=== PATIENT | male | born 1965 | race Caucasian/White ===

== ENCOUNTER 2020-11-29 16:07 | Emergency (ER) | payer BC ==
[2020-11-29 16:49] LABS: PTT,PARTIAL THROMBOPLSTIN TIME 29.2 SEC (23.2-32.3)
[2020-11-29 16:53] LABS: CHLORIDE,CL 104 mEq/L (98-106); SODIUM,NA 143 mEq/L (136-145)
--- NOTE | 2020-11-29 17:07 | EDM.PDOC ---
ED HPI GENERAL MEDICAL PROBLEM - General Chief Complaint: General Stated Complaint: FAINTED & FELL Time Seen by Provider: 11/29/20 16:40 Source of Information: Reports: Patient, RN History Limitations: Reports: No Limitations - History of Present Illness INITIAL COMMENTS - FREE TEXT/NARRATIVE: Pt states that since he has had COVID he is sleeping most of the day and is tired and not eating or drinking well. He got up to the bathroom and then fainted. was concerned and called the ambulance. He states that he is feeling much better now than at home. He is drinking water at bedside. Onset: Gradual Location: Reports: Generalized - Related Data Allergies Allergy/AdvReac Type Severity Reaction Status Date / Time No Known Allergies Allergy Verified 11/29/20 16:09 Home Meds: Home Meds Aspirin [Halfprin] 81 mg PO DAILY 02/12/13 [History] Calcium Carb/D3/Magnesium/Zinc [Alok Mag Zinc-D Tablet] 1 each PO DAILY 02/12/13 [History] Cholecalciferol (Vitamin D3) [Vitamin D3] 1,000 unit PO DAILY 02/12/13 [History] Lisinopril 20 mg PO DAILY 12/17/15 [History] Albuterol Sulfate [Proair Hfa] 1 puff INH Q4HR PRN 10/08/20 [History] Past Medical History Genitourinary History: Reports: Other (See Below) Other Genitourinary History: kidney stone Musculoskeletal History: Reports: Back Pain, Chronic - Past Surgical History HEENT Surgical History: Reports: CITLALY Social & Family History - Living Situation & Occupation Living situation: Reports: Occupation: Employed ED ROS GENERAL - Review of Systems Review Of Systems: See Below Constitutional: Reports: Fever, Chills, Weakness, Fatigue HEENT: Reports: No Symptoms Respiratory: Reports: Cough. Denies: Shortness of Breath Cardiovascular: Denies: Chest Pain, Edema Endocrine: Reports: Fatigue GI/Abdominal: Reports: Diarrhea : Reports: No Symptoms Musculoskeletal: Reports: No Symptoms Skin: Reports: No Symptoms Neurological: Reports: No Symptoms ED EXAM, GENERAL - Physical Exam Exam: See Below Exam Limited By: No Limitations General Appearance: WD/WN, Mild Distress Ears: Normal External Exam, Normal Canal, Normal TMs Nose: Normal Inspection Throat/Mouth: Normal Inspection, Normal Oropharynx Head: Atraumatic, Normocephalic Neck: Normal Inspection, Supple, Non-Tender, Full Range of Motion Respiratory/Chest: No Respiratory Distress, Decreased Breath Sounds. No: Wheezing Cardiovascular: Regular Rate, Rhythm, No Edema GI/Abdominal: Normal Bowel Sounds, Soft, Non-Tender Extremities: No Pedal Edema, Normal Capillary Refill Neurological: Alert, Oriented Skin Exam: Warm, Dry, Intact Course - Vital Signs Last Recorded V/S: Last Vital Signs Temp 99.1 F 11/29/20 16:15 Pulse 83 11/29/20 16:15 Resp 18 11/29/20 16:15 BP 142/63 H 11/29/20 16:15 Pulse Ox 96 11/29/20 16:15 - Orders/Labs/Meds Labs: Laboratory Tests 11/29/20 11/29/20 11/29/20 Range/Units 16:35 16:35 16:35 WBC 6.1 (4.0-11.0) 10^3/uL RBC 4.88 (4.50-6.00) x10^6/uL Hgb 14.5 (14.0-18.0) g/dL Hct 43.7 (42.0-52.0) % MCV 89.5 (83.0-97.0) fL MCH 29.7 (27.0-32.0) pg MCHC 33.2 (32.0-36.0) g/dL RDW Coeff of Mercedes 13.3 (11.0-15.0) % Plt Count 133 L (150-400) 10^3/uL Immature Gran % (Auto) 0.0 (0.0-4.9) % Neut % (Auto) 68.5 (41-71) % Lymph % (Auto) 17.3 L (24-44) % [place] % (Auto) 12.7 H (0-10) % Eos % (Auto) 1.2 (0-6) % Baso % (Auto) 0.3 (0-1) % Neut # (Auto) 4.16 (1.80-8.00) x10^3/uL Lymph # (Auto) 1.05 (0.60-5.00) 10^3/uL [place] # (Auto) 0.77 (0.00-1.50) 10^3/uL Eos # (Auto) 0.07 (0.00-1.50) 10^3/uL Baso # (Auto) 0.02 (0.00-0.50) 10^3/uL Immature Gran # (Auto) 0.00 (0.00-0.49) 10^3/uL PT 10.4 (9.7-12.3) SEC INR 0.95 (0.92-1.18) APTT 29.2 (23.2-32.3) SEC Sodium 143 (136-145) mEq/L Potassium 4.1 (3.5-5.0) mEq/L Chloride 104 (98-106) mEq/L Carbon Dioxide 27 (21-32) mmol/L BUN 17 (7-18) mg/dL Creatinine 1.1 (0.7-1.3) mg/dL Est Cr Clr Drug Dosing TNP Estimated GFR (MDRD) > 60 (>=60) mL/min Glucose 124 H (75-99) mg/dL Calcium 8.6 (8.4-10.1) mg/dL Total Bilirubin 0.5 (0.0-1.0) mg/dL AST 25 (15-37) U/L ALT 51 (12-78) U/L Alkaline Phosphatase 73 (46-116) U/L Lactate Dehydrogenase 173 (100-190) U/L Creatine Kinase 116 (35-232) U/L Troponin I High Sens 6.1 (<=76) pg/mL Total Protein 7.6 (6.4-8.2) g/dL Albumin 3.9 (3.4-5.0) g/dL - Re-Assessments/Exams Free Text/Narrative Re-Assessment/Exam: 11/29/20 1700 Discussed with pt his normal lab values. Discussed recommendations from the CDC. Encouraged to push fluids as much as possible, to be as active as possible to keep strength up. Departure - Departure Time of Disposition: 17:07 Disposition: Home, Self-Care 01 Condition: Good Clinical Impression: COVID-19 - Discharge Information *PRESCRIPTION DRUG MONITORING PROGRAM REVIEWED*: Not Applicable *COPY OF PRESCRIPTION DRUG MONITORING REPORT IN PATIENT IRENE: Not Applicable Instructions: COVID-19 Frequently Asked Questions, Symptoms of COVID-19 - [facility] [place] (04/02/2020), 3 [place] Steps to Take While Waiting for Your COVID-19 Test Result - [facility] [place] (08/17/2020) Referrals: Aaron Gibson MD [Primary Care Provider] - Forms: ED Department Discharge Additional Instructions: Push fluids as much as possible tylenol or advil as needed for discomfort and fever continue the quarantine as directed try to eat something everyday. - Problem List & Annotations (1) COVID-19 SNOMED Code(s): 027996971 Code(s): U07.1 - COVID-19 Status: Acute Priority: High - Problem List Review Problem List Initiated/Reviewed/Updated: Yes
[2020-11-29 18:10] VITALS: BP 142/63; PULSE 83
== END 2020-11-29 17:40 | disposition home or self-care (01) ==
LOC: CC.ED 16:07
DX: U07.1 COVID-19 (principal)
CPT/HCPCS: 36415; 80053; 82550; 83615; 84484; 85025; 85610; 85730; 93005; 99284-25